=== PATIENT | female | born 1970 | race Caucasian/White ===

== ENCOUNTER → 2023-07-02 14:55 | Outpatient (REF) | payer BC, SELFPAY | LOC: WDC 14:55 | PROVIDERS: ATTENDING PHYSICIAN Nurse Practitioner Primary Care | DX: Z12.31 Encounter for screening mammogram for malignant neoplasm of breast (principal) | CPT/HCPCS: 77063; 77067 ==

== ENCOUNTER → 2023-08-22 16:10 | Outpatient (REF) | payer BC, SELFPAY | LOC: RCS 16:10 | PROVIDERS: ATTENDING PHYSICIAN Nurse Practitioner Primary Care | DX: I35.8 Other nonrheumatic aortic valve disorders (principal) | CPT/HCPCS: 93306 ==

== ENCOUNTER → 2023-11-28 06:26 | Outpatient (REF) | payer BC, SELFPAY ==
[2023-11-28 07:22] LABS: % Basophils 0.6 % (0-2); % Eosinophils 1.6 % (0-6); % Immature Granulocytes 0.4 % (0-0.5); % Lymphocytes 40.5 % (20.5-51.1); % Monocytes 9.7 % (1.7-9.3); % Neutrophils 47.2 % (42.2-75.2); Absolute Basophils 0.1 10^3/uL (0-0.2); Absolute Eosinophils 0.2 10^3/uL (0-0.7); Absolute Lymphocytes 3.9 10^3/uL (1.2-3.4); Absolute Monocytes 0.9 10^3/uL (0.1-0.6); Absolute Neutrophils 4.5 10^3/uL (1.4-6.5); Hematocrit 38.7 % (37.0-47.0); Hemoglobin 13.3 g/dL (12.0-16.0); Mean Corp Hgb Conc. 34.4 g/dL (33.0-37.0); Mean Corpuscular Hgb 30.9 pg (27.0-31.0); Mean Platelet Volume 8.8 fL (7.4-10.4); Nucleated Red Blood Cells % 0 %; Platelet Count 387 10^3/uL (130-400); Red Cell Dist. Width 12.4 % (11.5-14.5); White Blood Cell Count 9.6 10^3/uL (4.8-10.8)
[2023-11-28 07:45] LABS: ALT (SGPT) 18 U/L (0-35); AST (SGOT) 20 U/L (14-36); Albumin 4.2 g/dl (3.5-5.0); Alkaline Phosphatase 81 U/L (38-126); Blood Urea Nitrogen 23 mg/dl (7-17); Calcium 9.4 mg/dl (8.4-10.2); Carbon Dioxide 32 mmol/L (22-30); Chloride 100 mmol/L (98-107); Glucose 79 mg/dl (70-99); HDL Cholesterol 51 mg/dl; LDL Cholesterol, Calculated 94 mg/dl; Potassium 3.9 mmol/L (3.5-5.1); Sodium 140 mmol/L (135-145); Total Bilirubin 0.7 mg/dl (0.2-1.3); Total Cholesterol 176 mg/dl (50-199); Total Protein 6.6 g/dl (6.3-8.2); Triglyceride 156 mg/dl (10-149); Very Low Density Lipoprotein 31 mg/dl (0-30); eGFR > 60.00
[2023-11-28 11:32] LABS: Glycohemoglobin (HgbA1c) 4.9 % (4.0-5.6)
== END ==
LOC: REG 06:26
PROVIDERS: ATTENDING PHYSICIAN Nurse Practitioner Primary Care
DX: E78.2 Mixed hyperlipidemia (principal); Z00.00 Encounter for general adult medical examination without abnormal findings; R73.03 Prediabetes; E66.3 Overweight; D50.9 Iron deficiency anemia, unspecified; R74.8 Abnormal levels of other serum enzymes
CPT/HCPCS: 36415; 80053; 80061; 83036; 85025

== ENCOUNTER → 2024-05-14 07:34 | Outpatient (REF) | payer BC, SELFPAY | LOC: MRI 07:34 | PROVIDERS: ATTENDING PHYSICIAN Physician Assistant Surgical; FAMILY PHYSICIAN Nurse Practitioner Primary Care | DX: M54.12 Radiculopathy, cervical region (principal); M54.2 Cervicalgia; M50.10 Cervical disc disorder with radiculopathy, unspecified cervical region | CPT/HCPCS: 72141 ==

== ENCOUNTER 2024-05-21 06:47 | Outpatient (RCR) | payer BC, SELFPAY | END 2024-05-21 23:59 | disposition home or self-care (01) | LOC: RPT 06:47 | PROVIDERS: ATTENDING PHYSICIAN Physician Assistant Surgical; FAMILY PHYSICIAN Nurse Practitioner Primary Care | DX: M54.12 Radiculopathy, cervical region (principal); M54.2 Cervicalgia; Z73.6 Limitation of activities due to disability | CPT/HCPCS: 97110; 97140; 97162; 97530 ==

== ENCOUNTER → 2024-05-21 11:33 | Outpatient (REF) | payer BC, SELFPAY | LOC: HWRAD 11:33 | PROVIDERS: ATTENDING PHYSICIAN Nurse Practitioner Primary Care | DX: E04.1 Nontoxic single thyroid nodule (principal) | CPT/HCPCS: 76536 ==

== ENCOUNTER → 2024-06-08 13:08 | Outpatient (REF) | payer BC, SELFPAY | LOC: MRI 3T 13:08 | PROVIDERS: ATTENDING PHYSICIAN Physician Assistant Surgical; FAMILY PHYSICIAN Nurse Practitioner Primary Care | DX: M54.6 Pain in thoracic spine (principal); M54.12 Radiculopathy, cervical region; M54.2 Cervicalgia; M50.10 Cervical disc disorder with radiculopathy, unspecified cervical region | CPT/HCPCS: 72146 ==

== ENCOUNTER → 2024-06-11 10:11 | Outpatient (REF) | payer BC, SELFPAY ==
[2024-06-11 10:35] VITALS: BP 122/89; BP_SYST 79
== END ==
LOC: RADI 10:11
PROVIDERS: ATTENDING PHYSICIAN Nurse Practitioner Primary Care
DX: E04.1 Nontoxic single thyroid nodule (principal)
CPT/HCPCS: 88173; 10005

== ENCOUNTER 2024-06-23 18:42 | Outpatient (RCR) | payer BC, SELFPAY | END 2024-06-23 23:59 | disposition home or self-care (01) | LOC: RPT 18:42 | PROVIDERS: ATTENDING PHYSICIAN Physician Assistant Surgical; FAMILY PHYSICIAN Nurse Practitioner Primary Care | DX: M54.12 Radiculopathy, cervical region (principal); M54.2 Cervicalgia; Z73.6 Limitation of activities due to disability; M50.10 Cervical disc disorder with radiculopathy, unspecified cervical region; M62.81 Muscle weakness (generalized) | CPT/HCPCS: 97010; 97110; 97112; 97140 ==

== ENCOUNTER → 2024-06-25 14:31 | Outpatient (REF) | payer BC, SELFPAY ==
[2024-06-25 14:45] VITALS: BP 130/89; BP_SYST 82
[2024-06-25 15:50] VITALS: BP 133/76
== END ==
LOC: RADI 14:31
PROVIDERS: ATTENDING PHYSICIAN Physician Assistant Surgical; FAMILY PHYSICIAN Nurse Practitioner Primary Care
DX: M54.12 Radiculopathy, cervical region (principal); R20.0 Anesthesia of skin; M79.601 Pain in right arm; M54.2 Cervicalgia
CPT/HCPCS: 62321; 97010; 97110; 97140

== ENCOUNTER → 2024-07-13 06:33 | Outpatient (REF) | payer BC, SELFPAY | LOC: MRI 06:33 | PROVIDERS: ATTENDING PHYSICIAN Physician Assistant Surgical; FAMILY PHYSICIAN Nurse Practitioner Primary Care | DX: M25.561 Pain in right knee (principal) | CPT/HCPCS: 73721 ==

== ENCOUNTER 2024-07-21 18:53 | Outpatient (RCR) | payer BC, SELFPAY | END 2024-07-21 23:59 | disposition home or self-care (01) | LOC: RPT 18:53 | PROVIDERS: ATTENDING PHYSICIAN Physician Assistant Surgical; FAMILY PHYSICIAN Nurse Practitioner Primary Care | DX: M54.12 Radiculopathy, cervical region (principal); M54.2 Cervicalgia; Z73.6 Limitation of activities due to disability; M50.10 Cervical disc disorder with radiculopathy, unspecified cervical region; M62.81 Muscle weakness (generalized) | CPT/HCPCS: 97010; 97110; 97112; 97140 ==

== ENCOUNTER 2024-07-28 19:17 | Outpatient (RCR) | payer BC, SELFPAY | END 2024-07-29 07:34 | disposition home or self-care (01) | LOC: RPT 19:17 | PROVIDERS: ATTENDING PHYSICIAN Physician Assistant Surgical; FAMILY PHYSICIAN Nurse Practitioner Primary Care | DX: M54.12 Radiculopathy, cervical region (principal); M54.2 Cervicalgia; Z73.6 Limitation of activities due to disability; M50.10 Cervical disc disorder with radiculopathy, unspecified cervical region; M62.81 Muscle weakness (generalized) | CPT/HCPCS: 97110; 97112 ==

== ENCOUNTER → 2024-09-08 06:29 | Outpatient (REF) | payer BC, SELFPAY ==
[2024-09-08 07:18] LABS: % Basophils 0.7 % (0-2); % Eosinophils 2.3 % (0-6); % Immature Granulocytes 0.3 % (0-0.5); % Lymphocytes 31.8 % (20.5-51.1); % Monocytes 8.1 % (1.7-9.3); % Neutrophils 56.8 % (42.2-75.2); Absolute Basophils 0.1 10^3/uL (0-0.2); Absolute Eosinophils 0.2 10^3/uL (0-0.7); Absolute Lymphocytes 2.8 10^3/uL (1.2-3.4); Absolute Monocytes 0.7 10^3/uL (0.1-0.6); Hematocrit 41.2 % (37.0-47.0); Hemoglobin 14.1 g/dL (12.0-16.0); Mean Corp Hgb Conc. 34.2 g/dL (33.0-37.0); Mean Corpuscular Hgb 30.5 pg (27.0-31.0); Mean Platelet Volume 8.8 fL (7.4-10.4); Nucleated Red Blood Cells % 0 %; Platelet Count 387 10^3/uL (130-400); Red Blood Cell Count 4.63 10^6/uL (4.20-5.40); White Blood Cell Count 8.8 10^3/uL (4.8-10.8)
[2024-09-08 09:01] LABS: ALT (SGPT) 18 U/L (0-35); AST (SGOT) 18 U/L (14-36); Albumin 4.5 g/dl (3.5-5.0); Alkaline Phosphatase 91 U/L (38-126); Blood Urea Nitrogen 16 mg/dl (7-17); Calcium 9.8 mg/dl (8.4-10.2); Carbon Dioxide 28 mmol/L (22-30); Chloride 106 mmol/L (98-107); Glucose 81 mg/dl (70-99); HDL Cholesterol 58 mg/dl; LDL Cholesterol, Calculated 118 mg/dl; Potassium 4.3 mmol/L (3.5-5.1); Sodium 143 mmol/L (135-145); Total Bilirubin 0.8 mg/dl (0.2-1.3); Total Cholesterol 206 mg/dl (50-199); Total Protein 7.3 g/dl (6.3-8.2); Triglyceride 151 mg/dl (10-149); Very Low Density Lipoprotein 30 mg/dl (0-30); eGFR > 60.00
[2024-09-08 10:49] LABS: Glycohemoglobin (HgbA1c) 4.9 % (4.0-5.6)
[2024-09-08 15:08] LABS: Vitamin D, 25-OH*** 44.4 ng/mL (30-80)
[2024-09-08 15:22] LABS: TSH Reflex To Free T4 2.52 uIU/ml (0.47-4.68)
== END ==
LOC: REG 06:29
PROVIDERS: ATTENDING PHYSICIAN Nurse Practitioner Primary Care
DX: E66.09 Other obesity due to excess calories (principal); E78.2 Mixed hyperlipidemia; R73.03 Prediabetes; E04.1 Nontoxic single thyroid nodule; E55.9 Vitamin D deficiency, unspecified
CPT/HCPCS: 36415; 80053; 80061; 82306; 83036; 84443; 85025

== ENCOUNTER → 2024-10-22 16:04 | Outpatient (REF) | payer BC, SELFPAY | LOC: CLAB 16:04 | PROVIDERS: ATTENDING PHYSICIAN Otolaryngology | DX: D37.05 Neoplasm of uncertain behavior of pharynx (principal) | CPT/HCPCS: 88305 ==

== ENCOUNTER → 2024-11-19 07:39 | Outpatient (REF) | payer BC, SELFPAY | LOC: RAD 07:39 | PROVIDERS: ATTENDING PHYSICIAN Surgery; FAMILY PHYSICIAN Nurse Practitioner Primary Care | DX: E04.1 Nontoxic single thyroid nodule (principal) | CPT/HCPCS: 76536 ==

== ENCOUNTER 2025-01-06 06:20 | Day surgery (SDC) | payer BC, SELFPAY ==
[2024-12-31 09:05] LABS: Hematocrit 39.3 % (37.0-47.0); Hemoglobin 13.0 g/dL (12.0-16.0); Mean Corp Hgb Conc. 33.1 g/dL (33.0-37.0); Mean Corpuscular Volume 88.5 fL (81.0-99.0); Platelet Count 383 10^3/uL (130-400); Red Cell Dist. Width 12.5 % (11.5-14.5)
[2024-12-31 09:15] LABS: INR 0.96; PT 13.3 Sec (11.4-14.6)
[2024-12-31 09:16] LABS: APTT 29.9 Sec (23.4-35.0)
[2024-12-31 09:35] LABS: ALT (SGPT) 22 U/L (0-35); AST (SGOT) 18 U/L (14-36); Albumin 4.1 g/dl (3.5-5.0); Alkaline Phosphatase 95 U/L (38-126); Blood Urea Nitrogen 17 mg/dl (7-17); Calcium 9.2 mg/dl (8.4-10.2); Carbon Dioxide 32 mmol/L (22-30); Chloride 106 mmol/L (98-107); Glucose 82 mg/dl (70-99); Potassium 4.5 mmol/L (3.5-5.1); Sodium 142 mmol/L (135-145); Total Protein 6.7 g/dl (6.3-8.2); eGFR > 60.00
[2024-12-31 13:58] VITALS: BMI 34.6
[2025-01-06] VITALS (8 sets, daily range): BP systolic 116–141; BP diastolic 65–86; BMI 34.6
[2025-01-06] MEDS: NORMOSOL-R/PLASMALYTE-A 1000 IV (11:33)
[2025-01-06] MEDS: TYLENOL 1000 MG PO (11:33)
[2025-01-06] MEDS: NEURONTIN 300 MG PO (11:33)
[2025-01-06] MEDS: HEPARIN 5000 UNITS SC (12:06)
[2025-01-06] MEDS: DILAUDID 0.25 MG IV (14:39)
--- NOTE | 2025-01-06 14:40 | OR.RPT ---
Operative Report
Operative Report
DATE OF OPERATION: January 06, 2025
PREOPERATIVE DIAGNOSIS: Thyroid Nodule Single - E041
POSTOPERATIVE DIAGNOSIS: Same
SURGEON: Huber Soto M.D.
OPERATION: Left Thyroidectomy and Left Limited Level Neck Dissection - 03606
ANESTHESIA: GET
ESTIMATED BLOOD LOSS: 1 cc
DRAINS: None
SPECIMEN: Left thyroid lobe and isthmus and level paratracheal tissue
COMPLICATIONS: None
PROCEDURE:
The patient was taken to the operating room and placed in the usual supine position. After adequate general endotracheal anesthesia was established, the patient�s neck was extended, prepped, and draped in the typical sterile fashion. A 5 cm
transcervical incision was made two fingerbreadths above the sternal notch. The skin incision was made with the #15 blade, which was taken through the skin into the subcutaneous tissue. The underlying platysma muscle was divided, and subplatysmal
flaps were created superiorly to the thyroid cartilage and inferiorly to the sternal notch. Strap muscles were identified and at the midline.
Attention was turned to the patient�s left thyroid lobe. The left thyroid lobe was mobilized medially. During this process, the left middle thyroid vein and inferior thyroid artery were dissected and ligated with Ligasure. Next, the left superior
pole was taken down by dissecting and transecting the superior pole vessels with a Ligasure. The left thyroid lobe was mobilized medially. During this process, the left recurrent laryngeal nerve was identified and preserved throughout its entire
course.
At this time, the left level neck dissection was performed. The tissue between the left carotid artery to the trachea into the anterior mediastinum was carefully dissected. The previously identified recurrent laryngeal nerve and parathyroid
glands were preserved. The tissue was removed and sent to the pathology department.
After achieving adequate hemostasis, the strap muscle was approximated with #3-0 Vicryl in a running fashion, and the platysma muscles were reapproximated with #3-0 Vicryl in an interrupted manner. The skin was then closed with #4-0 Monocryl in a
running subcuticular technique. Steri-strips and sterile dressings were applied. The patient tolerated the procedure well. The final instrument, needle, and sponge counts were correct.
[2025-01-06] MEDS: ROXICODONE 10 MG PO (16:06)
== END 2025-01-06 16:35 | disposition home or self-care (01) ==
LOC: SDS 06:20
PROVIDERS: ATTENDING PHYSICIAN Surgery; FAMILY PHYSICIAN Nurse Practitioner Primary Care
DX: C73 Malignant neoplasm of thyroid gland (principal); E04.1 Nontoxic single thyroid nodule
CPT/HCPCS: 60220; 36415; 80053; 85027; 85610; 85730; 88307; 88341; 88342; 93005

== ENCOUNTER → 2025-02-02 18:39 | Outpatient (REF) | payer BC, SELFPAY | LOC: WDC 18:39 | PROVIDERS: ATTENDING PHYSICIAN Nurse Practitioner Primary Care | DX: Z12.31 Encounter for screening mammogram for malignant neoplasm of breast (principal) | CPT/HCPCS: 77063; 77067 ==

== ENCOUNTER → 2025-02-17 13:22 | Outpatient (REF) | payer BC, SELFPAY ==
[2025-02-17 15:58] LABS: TSH 3.43 uIU/ml (0.47-4.68)
[2025-02-20 02:23] LABS: Total T3 (Sendout) 93 ng/dL (80-200)
== END ==
LOC: REG 13:22
PROVIDERS: ATTENDING PHYSICIAN Surgery; FAMILY PHYSICIAN Nurse Practitioner Primary Care
DX: E03.9 Hypothyroidism, unspecified (principal)
CPT/HCPCS: 36415; 84436; 84443; 84480